=== PATIENT | male | born 1995 | race Two or more races ===

== ENCOUNTER 2020-05-30 15:16 | Outpatient (REF) | payer OTHER, SELFPAY ==
[2020-05-30 15:38] LABS: COVID-19 Test Negative (Negative); IDNOW Serial# 55D5AD1C
== END 2020-05-30 15:17 | disposition home or self-care (01) ==
LOC: HO.LAB 15:16
PROVIDERS: Visit Provider Internal Medicine
DX: Z20.828 Contact with and (suspected) exposure to other viral communicable diseases (principal)
CPT/HCPCS: 87635; C9803

== ENCOUNTER 2020-06-14 13:05 | Outpatient (REF) | payer OTHER, SELFPAY ==
[2020-06-14 13:19] LABS: COVID-19 Test Positive (Negative)
== END 2020-06-14 13:06 | disposition home or self-care (01) ==
LOC: HO.EMPCOV 13:05
PROVIDERS: Visit Provider Internal Medicine
DX: Z20.828 Contact with and (suspected) exposure to other viral communicable diseases (principal)
CPT/HCPCS: 87635; C9803

== ENCOUNTER 2020-09-19 12:04 | Outpatient (REF) | payer OTHER, SELFPAY ==
[2020-09-19 12:25] LABS: COVID-19 Test Negative (Negative)
== END 2020-09-19 12:05 | disposition home or self-care (01) ==
LOC: HO.EMPCOV 12:04
PROVIDERS: Visit Provider Internal Medicine
DX: Z20.822 Contact with and (suspected) exposure to COVID-19 (principal)
CPT/HCPCS: 36415; 87635; C9803

== ENCOUNTER 2022-12-21 10:03 | Outpatient (REF) | payer OTHER, SELFPAY ==
[2022-12-21 13:16] LABS: Influenza A PCR NEGATIVE (Negative); Influenza B PCR NEGATIVE (Negative); Resp Syncy Virus RNA Qual PCR NEGATIVE (Negative); SARS COV2 PCR INHOUSE NEGATIVE (Negative)
== END 2022-12-21 10:04 | disposition home or self-care (01) ==
LOC: HO.LAB 10:03
PROVIDERS: Visit Provider Family Medicine
DX: Z20.822 Contact with and (suspected) exposure to COVID-19 (principal); B34.9 Viral infection, unspecified
CPT/HCPCS: 0241U

== ENCOUNTER 2023-07-19 10:20 | Outpatient (REF) | payer OTHER, SELFPAY | END 2023-07-19 10:21 | disposition home or self-care (01) | LOC: HO.NEURO 10:20 | PROVIDERS: Visit Provider Physician Assistant | DX: G56.03 Carpal tunnel syndrome, bilateral upper limbs (principal) | CPT/HCPCS: 95886; 95911 ==

== ENCOUNTER → 2023-07-19 10:23 | Outpatient (BNV) | payer OTHER, SELFPAY | PROVIDERS: Visit Provider Physical Medicine & Rehabilitation | DX: G56.03 Carpal tunnel syndrome, bilateral upper limbs (principal) | CPT/HCPCS: 95886; 95911 ==